=== PATIENT | male | born 1975 | race Two or more races ===

== ENCOUNTER 2023-09-12 22:21 | Emergency (ER) | payer MEDICAID ==
[~2023-09-12] VITALS: Ht 180.3 cm; Wt 109.1 kg
[2023-09-12 22:23] VITALS: BP 146/104
[2023-09-12 22:29] VITALS: TEMP 98.4
[2023-09-13 00:15] LABS: ALBUMIN 4.2 G/DL (3.4-5.0); ANION GAP 12 (8-16); BLOOD UREA NITROGEN 9 MG/DL (7-18); CALCIUM 8.7 MG/DL (8.5-10.1); CHLORIDE 101 MMOL/L (99-107); GLUCOSE 121 MG/DL (70-104); PRO BRAIN NATRIURETIC PEPTIDE 180 PG/ML (0-125); SODIUM 138 MMOL/L (135-145); TOTAL CARBON DIOXIDE 24.6 MMOL/L (24-32); eCRCL 109 ML/MIN; eGFR > 90 ML/MIN
[2023-09-13 00:20] LABS: BASOPHILS % (AUTO) 0.3 % (0-1); EOSINOPHILS # (AUTO) 0.1 X10'3 (0-0.9); EOSINOPHILS % (AUTO) 0.9 % (0-6); HEMATOCRIT 40.9 % (42.0-52.0); HEMOGLOBIN 13.9 g/dl (14.0-17.9); LYMPHOCYTES # (AUTO) 1.4 X10'3 (1.1-4.8); LYMPHOCYTES % (AUTO) 11.5 % (21-51); MEAN CORPUSCULAR HEMOGLOBIN 30.3 PG (27.0-31.0); MEAN PLATELET VOLUME 7.1 FL (7.4-10.4); MONOCYTES # (AUTO) 0.6 X10'3 (0-0.9); MONOCYTES % (AUTO) 4.8 % (2-12); NEUTROPHILS # (AUTO) 9.7 X10'3 (1.8-7.7); NEUTROPHILS % (AUTO) 82.5 % (42-75); PLATELET COUNT 399 X10'3 (140-440); RED CELL DISTRIBUTION WIDTH 13.7 % (11.5-14.5); WHITE BLOOD COUNT 11.8 X10'3 (4.5-11.0)
[2023-09-13] MEDS: ibuprofen tablet 400 MG TABLET PO ONE (01:24)
[2023-09-13] MEDS: acetaminophen 325mg tablet PO ONE (01:26)
[2023-09-13 01:32] VITALS: PULSE 88; RESP 16; O2SAT 98
== END 2023-09-13 01:51 ==
LOC: ER 22:21 → EEVIPCON 22:21 → ER 09-13 01:51
DX: R07.89 Other chest pain (principal); F41.9 Anxiety disorder, unspecified; Z88.8 Allergy status to other drugs, medicaments and biological substances
CPT/HCPCS: 36415; 71045; 80048; 83880; 84484; 85025; 93005; 99285

== ENCOUNTER 2025-03-19 12:40 | Emergency (ER) | payer MEDICAID ==
[~2025-03-19] VITALS: Ht 193 cm; Wt 105.0 kg
[2025-03-19 12:49] VITALS: BP 172/100; PULSE 90; RESP 16; O2SAT 98
--- NOTE | 2025-03-19 15:07 | Physician Documentation ---
History of Present Illness ~ Chief Complaint: Ear Pain Stated Complaint: R EAR HEARING LOSS/JAW PAIN Time Seen by MD: 13:51 HPI This is a 49-year-old male who presents with 2-3 weeks of right ear discomfort, pain, and decreased hearing, patient reports pain radiates into his jaw. Patient reports no fever. Medication Reconciliation Allergies: Uncoded Allergies: PENICILLIN (Allergy, Unknown, 09/12/23) Scheduled Amoxicillin (Amoxicillin), 1 TAB PO Q12H Ciprofloxacin HCl/Dexameth (Ciproflox-Dexameth Otic Susp), 4 DROP RIGHT EAR BID Past Medical History Past Medical History: No Pertinent History Smoking Status: Never smoker Review of Systems ROS As stated above in the HPI, otherwise all systems are reviewed and negative. Physical Exam Vital Signs: Temperature: 98.1, Source: Temporal, Heart Rate: 90, Respiratory Rate: 16, BP: 172/100, Pulse Oximetry: 98, Weight: 105.000 Oxygen Flow Rate: 0 Physical Exam VITALS: Reviewed and as above. GENERAL: Alert, nontoxic appearing, no apparent distress. HEENT: Right auditory canal mild erythema, white substance walks visualization of right TM. Left auditory canal and TM normal exam. Facial swelling, no postauricular swelling or erythema. RESPIRATORY: No increased work of breathing, no respiratory distress, speaking in full clear sentences Progress Progress Note The ear was irrigated by nursing staff and a small amount of clot and gauze irrigated from the ear. After ear irrigation by nursing the right ear was re- evaluated tympanic membrane is erythematous though nonbulging. No remaining foreign body visualized Results/Orders Results/Orders Orders - KERLINE OLIVA General Nursing Order (03/19/25 ) Completed Orders - KERLINE OLIVA Cipro 0.3%/Dexameth 0.1% Otic (Ciproflox (03/19/25 15:35) Ibuprofen Tablet (Motrin Tablet) (03/19/25 15:35) Vital Signs 03/19/25 03/19/25 12:49 15:52 Temp 98.1 98.1 Pulse 90 Resp 16 B/P (MAP) 172/100 Pulse Ox 98 O2 Flow Rate 0 Medical Decision Making Additional information obtaine: N/A Findings This 49-year-old male presented with 2-3 weeks of your pain, physical exam initially demonstrated a white waxy substance blocking TM. Nursing irrigated the ear with a piece of cotton being removed, re-evaluation demonstrated no retained foreign body though erythema to TM and auditory canal. Physical exam consistent with otitis externa. This is an otherwise well-appearing and appropriate for outpatient follow up. Patient discharged with home care instructions return to care precautions and follow up instructions. Ear Diff. Dx: Considerations: Include: Abrasion, Cerumen impaction, Foreign body, Otitis externa, Barotrauma, Otitis media, Perforation, Referred pain- dental, Referred pain-pharyngitis, Referred pain-sinusitis, Referred pain-TMJ syn., Tympanic Membrane Injury Eye Diff. Dx: Considerations: Unlikely: Chalazoin, Conjuctivits-allergic, Conjuctivitis-bacterial, Conjuctivits-chlamydial, Conjuctivitis-viral, Corneal abrasion, Corneal laceration, Corneal ulceration, Foreign body-conjuctiva, Foreign body-corneal, Foreign body-intraocular, Foreign body-lid, Glaucoma, Globe rupture, Hordeolum, Iritis, Orbital cellulitis, Periobital cellulitis, Retinal artery occulsion, Retinal vein occlusion, Rust ring, Subconjunctival hem, Ultraviolet keratitis, Uveitis, Vitreous hemorrhage, Other Nose Diff. Dx: Considerations: Unlikely: Abrasion, Anterior nasal bleed, Avulsion, Contusion, Coagulopathy, Fracture-nasal bone, Fracture-septum, Hypertension, Laceration, Other, Posterior nasal bleed, Retained foreign body, Septal hematoma Tooth Diff. Dx: Considerations: Unlikely: Alveolar fracture, Aveolar osteitis, ANUG, Facial cellulitis, Periapical abscess, Periodontal abscess, Post- extraction bleeding, Pulpitis, Trigeminal neuralgia, Tooth-avulsion, Tooth- eruption, Tooth-fracture, Tooth-subluxation, Other Throat Diff Dx: Considerations: Unlikely: AIDS, Epiglottitis, Esophageal candidiasis, Hand foot mouth disease, Herpangina, Herpetic stomatitis, Herpes simplex, Infection mononucleosis, Immunodeficiency, Frederick's angina, Peritonsillar abscess, Peritonsillar cellulitis, Pharyngitis-diphtheria, Pharyngitis-strepococcal, Pharyngitis-viral, Thrush, URI, Other Departure Time of Disposition: 15:42 Disposition: 01 HOME / SELF CARE / HOMELESS Impression: Primary Impression: Otitis externa Qualified Codes: H60.501 - Unspecified acute noninfective otitis externa, right ear Additional Impressions: Right ear pain Ear foreign body Qualified Codes: T16.1XXA - Foreign body in right ear, initial encounter Condition: Improved Discharge Instructions: Otitis Externa, Ear Foreign Body Additional Instructions: Please avoid using Q-tips in your ears. Please use the ear drops as prescribed, if you develop worsening symptoms or a fever in the next 24 hours or if your ear pain does not decrease after 24 hours please start taking the prescribed oral antibiotics. Please follow up with your primary care provider in the next few days. Please return to the emergency department for any new or worsening concerning symptoms. Referrals: NO PRIMARY CARE PROVIDER (PCP) Prescriptions Amoxicillin (Amoxicillin) 875 Mg Tablet 1 TAB PO Q12H for 5 Days, #10 TAB Prov: KERLINE OLIVA 03/19/25 Ciprofloxacin HCl/Dexameth (Ciproflox-Dexameth Otic Susp) 0.3 %-0.1 % Drops.susp 4 DROP RIGHT EAR BID for 7 Days, #1 BOTTLE Prov: KERLINE OLIVA 03/19/25 Education Educated: Patient Educated regarding: diagnosis, treatment, prognosis, need for follow up Signature Scribe Signature: No scribe Attestation: The note accurately reflects work and decisions made by me.ARISTEO Darnell 03/20/25 01:21 KERLINE OLIVA Mar 19, 2025 15:07
[2025-03-19] MEDS ORDERED: CIPR7.5D7 RIGHT EAR (15:44)
[2025-03-19] MEDS ORDERED: AMOX875T2 PO (15:44)
[2025-03-19] MEDS: ibuprofen tablet 400 MG TABLET PO ONE (15:46)
[2025-03-19] MEDS: CIPROFLOXACIN HCL/DEXAMETH 7.5 ML DROPS.SUSP RIGHT EAR ONE (15:47)
[2025-03-19 15:52] VITALS: TEMP 98.1
== END 2025-03-19 15:53 | disposition home or self-care (01) ==
LOC: ER 12:41
DX: T16.1XXA Foreign body in right ear, initial encounter (principal); H92.01 Otalgia, right ear; H60.91 Unspecified otitis externa, right ear; W44.9XXA Unspecified foreign body entering into or through a natural orifice, initial encounter; Y93.89 Activity, other specified; Y92.89 Other specified places as the place of occurrence of the external cause; Y99.8 Other external cause status
CPT/HCPCS: 69209; 99283; J7030